=== PATIENT | male | born 1960 | race Caucasian/White ===

== ENCOUNTER 2018-12-03 13:54 | Inpatient (IN) | payer SELFPAY ==
[~2018-12-03] VITALS: Ht 177.8 cm; Wt 75.5 kg
[2018-12-03] VITALS (240 sets, daily range): BP systolic 89–135; BP diastolic 67–100; PULSE 10–118; TEMP 98.4–103.2; O2SAT 81–99
[2018-12-03 18:51] LABS: COLLECTION METHOD CLEAN CATCH
[2018-12-03 18:57] LABS: HEMATOCRIT 37.4 % (42.0-52.0); HEMOGLOBIN 12.8 g/dl (13.5-18.0); MEAN CELL VOLUME 86 fl (80.0-100.0); MEAN CORPUSCULAR HEMOGLOBIN 29 pg (27.0-31.0); MEAN CORPUSCULAR HGB CONC 34 g/dl (33.0-37.0); MEAN PLATELET VOLUME 10.3 fl (7.4-10.4); PLATELET COUNT 126 K/mm3 (130-400); RED BLOOD COUNT 4.36 M/mm3 (4.20-5.60); REDCELL DISTRIBUTION WIDTH-CV 13.5 % (11.5-14.5)
[2018-12-03 19:01] LABS: INR 1.7 (0.8-3.0)
[2018-12-03 19:03] LABS: PARTIAL THROMBOPLASTIN TIME 38.2 SECONDS (26.0-37.0)
[2018-12-03 19:04] LABS: PH 5 (5-8); SQUAMOUS EPITHELIAL 0-2 /hpf; URINE APPEARANCE Clear; URINE BACTERIA None Seen /hpf; URINE BILIRUBIN Negative (NEGATIVE); URINE BLOOD 2+ (NEGATIVE); URINE COLOR Yellow; URINE GLUCOSE Negative (NEGATIVE); URINE KETONE Trace (NEGATIVE); URINE LEUKOCYTE ESTERASE Negative (NEGATIVE); URINE NITRATE Negative (NEGATIVE); URINE PROTEIN(semi-quant) 2+ (NEGATIVE); URINE UROBILINOGEN >=4.0 mg/dL (NEGATIVE)
[2018-12-03 19:09] LABS: ALANINE AMINOTRANSFERASE 97 U/L (21-72); ALBUMIN 2.8 gm/dL (3.5-5.0); ALKALINE PHOSPHATASE 49 U/L (50-136); ANION GAP 8 mmol/L (7-16); AST,SGOT 107 U/L (15-37); BILIRUBIN,TOTAL 2.4 mg/dL (0.0-1.0); BLOOD UREA NITROGEN 16 mg/dL (9-20); CALCIUM 7.5 mg/dL (8.4-10.2); CARBON DIOXIDE 24 mmol/L (22-30); CHLORIDE 97 mmol/L (98-107); CREATININE, serum 0.98 (0.66-1.25); GLUCOSE 130 mg/dL (74-106); MAGNESIUM 1.4 mg/dL (1.6-2.3); SODIUM 129 mmol/L (137-145); TOTAL PROTEIN 5.5 gm/dL (6.4-8.2)
[2018-12-03 19:19] LABS: ARTERIAL BLD GAS O2 SATURATION 97.2 % (92-100); ARTERIAL BLD GAS TCO2 CT 20.6; ARTERIAL BLOOD GAS BASE EXCESS -3.7 (-2-2); ARTERIAL BLOOD GAS HCO3 19.7 meq/L (22-26); ARTERIAL BLOOD GAS PCO2 30.8 mmHg (35-45); ARTERIAL BLOOD GAS PO2 96.9 mmHg (80-100); ARTERIAL BLOOD GAS pH 7.42 (7.35-7.45)
[2018-12-03 19:25] LABS: BAND 30 % (0-10); BASOPHIL 1 % (0-2); LYMPHOCYTE 5 % (20.0-51.0); METAMYELOCYTE 2 % (0-0); NEUTROPHILS 58 % (42.0-75.2); PLATELET ESTIMATE DECREASED (NORMAL)
[2018-12-03 19:36] LABS: TRICYCLIC ANTIDEPRESS URINE NEGATIVE
[2018-12-03 19:55] LABS: HCG,QUANTITATIVE < 2 mIU/mL
[2018-12-03 19:56] LABS: TROPONIN-I 0.038 ng/mL (0.000-0.035)
[2018-12-03 20:15] LABS: C-REACTIVE PROTEIN 29.9 mg/dL (0.0-0.9)
[2018-12-04] VITALS (1391 sets, daily range): BP systolic 92–121; BP diastolic 58–85; PULSE 89–115; TEMP 97.6–99.1; O2SAT 68–100
[2018-12-04 04:50] LABS: HEMOGLOBIN 11.6 g/dl (13.5-18.0); MEAN CELL VOLUME 87 fl (80.0-100.0); MEAN CORPUSCULAR HEMOGLOBIN 30 pg (27.0-31.0); MEAN CORPUSCULAR HGB CONC 35 g/dl (33.0-37.0); MEAN PLATELET VOLUME 10.5 fl (7.4-10.4); PLATELET COUNT 96 K/mm3 (130-400); RED BLOOD COUNT 3.88 M/mm3 (4.20-5.60); REDCELL DISTRIBUTION WIDTH-CV 13.7 % (11.5-14.5)
[2018-12-04 04:52] LABS: ARTERIAL BLD GAS O2 SATURATION 93.6 % (92-100); ARTERIAL BLD GAS TCO2 CT 22.2; ARTERIAL BLOOD GAS BASE EXCESS -2.4 (-2-2); ARTERIAL BLOOD GAS HCO3 21.2 meq/L (22-26); ARTERIAL BLOOD GAS PCO2 33.1 mmHg (35-45); ARTERIAL BLOOD GAS pH 7.43 (7.35-7.45)
[2018-12-04 04:53] LABS: HEMATOCRIT 33.6 % (42.0-52.0)
[2018-12-04 04:58] LABS: INR 1.7 (0.8-3.0); PROTHROMBIN TIME 19.6 SECONDS (9.7-12.8)
[2018-12-04 05:03] LABS: ALBUMIN 2.6 gm/dL (3.5-5.0); BILIRUBIN,TOTAL 1.8 mg/dL (0.0-1.0); CALCIUM 7.5 mg/dL (8.4-10.2); CREATININE, serum 0.77 (0.66-1.25); MAGNESIUM 2.1 mg/dL (1.6-2.3); POTASSIUM 3.9 mmol/L (3.4-5.0); TOTAL PROTEIN 5.1 gm/dL (6.4-8.2)
[2018-12-04 05:11] LABS: BAND 45 % (0-10); LYMPHOCYTE 4 % (20.0-51.0); NEUTROPHILS 49 % (42.0-75.2)
[2018-12-04 05:12] LABS: PLATELET ESTIMATE DECREASED (NORMAL)
[2018-12-04 05:13] LABS: OVALOCYTES 1+
[2018-12-05] VITALS (997 sets, daily range): BP systolic 103–122; BP diastolic 73–92; PULSE 104–126; TEMP 98–99.8; O2SAT 76–100
[2018-12-05 02:51] LABS: HEMOGLOBIN 10.9 g/dl (13.5-18.0)
[2018-12-05 02:53] LABS: HEMATOCRIT 31.9 % (42.0-52.0)
[2018-12-05 03:01] LABS: ALBUMIN 2.5 gm/dL (3.5-5.0); LACTATE DEHYDROGENASE 456 U/L (313-618)
[2018-12-05 03:16] LABS: TROPONIN-I < 0.012 ng/mL (0.000-0.035)
[2018-12-05 05:03] LABS: ARTERIAL BLD GAS O2 SATURATION 94.8 % (92-100); ARTERIAL BLD GAS TCO2 CT 24.3; ARTERIAL BLOOD GAS BASE EXCESS 0.1 (-2-2); ARTERIAL BLOOD GAS HCO3 23.3 meq/L (22-26); ARTERIAL BLOOD GAS PO2 71.2 mmHg (80-100); ARTERIAL BLOOD GAS pH 7.47 (7.35-7.45)
[2018-12-05 05:46] LABS: HEMOGLOBIN 11.5 g/dl (13.5-18.0); MEAN CELL VOLUME 86 fl (80.0-100.0); MEAN CORPUSCULAR HEMOGLOBIN 30 pg (27.0-31.0); MEAN CORPUSCULAR HGB CONC 35 g/dl (33.0-37.0); MEAN PLATELET VOLUME 11.7 fl (7.4-10.4); PLATELET COUNT 118 K/mm3 (130-400); RED BLOOD COUNT 3.84 M/mm3 (4.20-5.60); REDCELL DISTRIBUTION WIDTH-CV 13.6 % (11.5-14.5)
[2018-12-05 05:49] LABS: HEMATOCRIT 33.1 % (42.0-52.0)
[2018-12-05 06:00] LABS: ALBUMIN 2.6 gm/dL (3.5-5.0); CALCIUM 7.6 mg/dL (8.4-10.2); CREATININE, serum 0.71 (0.66-1.25); POTASSIUM 3.6 mmol/L (3.4-5.0); TOTAL PROTEIN 5.3 gm/dL (6.4-8.2)
[2018-12-05 06:08] LABS: INR 1.3 (0.8-3.0); PROTHROMBIN TIME 14.6 SECONDS (9.7-12.8)
[2018-12-05 06:41] LABS: BAND 41 % (0-10); EOSINOPHIL 1 % (0-4); LYMPHOCYTE 2 % (20.0-51.0); NEUTROPHILS 55 % (42.0-75.2)
[2018-12-05 06:42] LABS: PLATELET ESTIMATE DECREASED (NORMAL)
[2018-12-05 06:43] LABS: ANISOCYTOSIS 1+; POIKILOCYTOSIS 1+
== END 2018-12-05 19:24 | disposition short-term general hospital (02) | DRG 853 ==
LOC: MEDICAL 13:54 → ICU 13:54
PROVIDERS: Anesthesiology Critical Care Medicine; Internal Medicine; ADMIT Urology
PROC: 0VBS0ZZ Excision of Penis, Open Approach (ICD-10-PCS; principal; 2018-12-03 17:45)
PROC: 0VBS0ZZ Excision of Penis, Open Approach (ICD-10-PCS; 2018-12-05)
DX: A41.9 Sepsis, unspecified organism (principal); M72.6 Necrotizing fasciitis; R65.21 Severe sepsis with septic shock; N49.3 Fournier gangrene; I95.9 Hypotension, unspecified; F17.200 Nicotine dependence, unspecified, uncomplicated; F15.10 Other stimulant abuse, uncomplicated; I48.0 Paroxysmal atrial fibrillation; D64.9 Anemia, unspecified; R09.02 Hypoxemia
CPT/HCPCS: 99233-AI; A4314; C1751; J1100; J1650; J1815; J1885; J2270; J2370; J2405; J2543; J2704; J3010; J3370; J3475; J7030; J7040; J7050; J7060; J7120